=== PATIENT | female | born 1970 | race Caucasian/White ===

== ENCOUNTER 2016-04-06 10:57 | Emergency (ER) | payer OTHER ==
[2016-04-06 11:54] LABS: BASOPHILS 0.3 % (0.0-2.0); EOSINOPHILS 0.8 % (0-7); HEMATOCRIT 42.9 % (36.0-48.0); HEMOGLOBIN 14.4 g/dL (12-16); IMMATURE GRANULOCYTES 0.3 % (0-5); LYMPHOCYTES 34.3 % (15-50); MCH 32.1 pg (26.0-34.0); MCHC 33.6 g/dL (31.0-37.0); MCV 95.8 fL (80.0-100.0); MEAN PLATELET VOLUME 10.6 fL (7.4-10.4); MONOCYTES 7.3 % (2-11); PLATELET COUNT 260 10x3/uL (130-400); RBC 4.48 10x6/uL (4.00-5.40); RDW 13.2 % (11.5-14.5); WBC 7.2 10x3/uL (4.8-10.8)
[2016-04-06 12:20] LABS: CALC OSMOLALITY 281 mosm/kg (275-300); CALCIUM 8.8 mg/dL (8.5-10.1); CARBON DIOXIDE 28.5 mmol/L (21.0-32.0); CHLORIDE - SERUM 105 mmol/L (98-107); CREATININE - SERUM 0.8 mg/dL (0.6-1.3); GLUCOSE 96 mg/dL (74-106); SODIUM 141 mmol/L (136-145); T4 THYROXIN - FREE 0.84 ng/dL (0.76-1.46); THYROID STIMULATING HORMONE 1.08 uIU/mL (0.36-3.74); UREA NITROGEN 14 mg/dL (7-18); eGFR NON AFRICAN AMERICAN 82 mL/min (90-120)
[2016-04-06 12:31] LABS: TROPONIN-I < 0.017 ng/mL (0.000-0.060)
== END 2016-04-06 13:44 | disposition home or self-care (01) ==
LOC: D.ER 10:57
PROVIDERS: Emergency Medicine Emergency Medical Services
DX: I49.8 Other specified cardiac arrhythmias (principal); R53.1 Weakness

== ENCOUNTER → 2016-04-07 16:41 | Outpatient (CLI) | payer OTHER ==
[2016-04-07 18:05] LABS: T4 THYROXIN - FREE 0.82 ng/dL (0.76-1.46); THYROID STIMULATING HORMONE 0.92 uIU/mL (0.36-3.74)
[2016-04-07 18:58] LABS: ERYTHROCYTE SEDIMENTATION RATE 3 mm/hr (0-20)
== END | disposition home or self-care (01) ==
LOC: D.LABREF 16:41
PROVIDERS: Internal Medicine Cardiovascular Disease
DX: R06.00 Dyspnea, unspecified (principal); R00.1 Bradycardia, unspecified

== ENCOUNTER → 2016-06-02 14:24 | Outpatient (CLI) | payer OTHER | END | disposition home or self-care (01) | LOC: D.CT 14:24 | DX: M54.5 Low back pain (principal) ==

== ENCOUNTER 2016-08-20 09:02 | Outpatient (CLI) | payer OTHER | END 2016-08-20 11:06 | LOC: D.MAMMO 09:02 | DX: N63 Unspecified lump in breast (principal); Z80.3 Family history of malignant neoplasm of breast ==

== ENCOUNTER → 2018-07-14 09:45 | Outpatient (CLI) | payer OTHER | END | disposition home or self-care (01) | LOC: D.OPS 09:45 | DX: K21.9 Gastro-esophageal reflux disease without esophagitis (principal); K44.9 Diaphragmatic hernia without obstruction or gangrene ==

== ENCOUNTER 2018-10-06 06:10 | Day surgery (SDC) | payer OTHER ==
[2018-10-05 09:15] LABS: BASOPHILS 0.3 % (0-2); EOSINOPHILS 3.4 % (0-7); HEMATOCRIT 47.2 % (36.0-48.0); HEMOGLOBIN 16.5 g/dL (12-16); IMMATURE GRANULOCYTES 0.1 % (0-5); LYMPHOCYTES 40.8 % (15-50); MCH 31.9 pg (26.0-34.0); MCV 91.3 fL (80.0-100.0); MEAN PLATELET VOLUME 9.6 fL (7.4-10.4); NEUTROPHILS 47.4 % (40-80); PLATELET COUNT 268 10x3/uL (130-400); RBC 5.17 10x6/uL (4.00-5.40); WBC 7.1 10x3/uL (4.8-10.8)
[2018-10-05 09:23] LABS: ANION GAP 9.8 mmol/L (8-16); CALCIUM 9.3 mg/dL (8.5-10.1); CARBON DIOXIDE 29.5 mmol/L (21.0-32.0); CREATININE - SERUM 0.9 mg/dL (0.6-1.3); POTASSIUM - SERUM 4.3 mmol/L (3.5-5.1)
[~2018-10-06] VITALS: Ht 167.6 cm; Wt 77.7 kg
[~2018-10-06 06:10] MED LIST: CYTOMEL25 MCG PO; MAGNESIUM OXID500 MG PO; PERCOCET 7.5/321 TAB PO; VITAMIN C500 M1 PO
[2018-10-06 06:51] VITALS: BP 144/97; BMI 28.1
[2018-10-06 11:09] VITALS: BP 131/84
[2018-10-06 15:37] VITALS: BP 131/84; Ht 167.6 cm; Wt 77.7 kg
[2018-10-06 16:34] VITALS: BP 135/77
--- NOTE | 2018-10-06 19:30 | NUR ---
PT CALL ME INTO ROOM AND VOICES CONCERN ABOUT BLEEDING LAP SITE ON THE RIGHT SIDE OF ABDOMEN. WHILE REDRESSING SITE PT VOICES THAT SHE WANTED TO SEE THE DOCTOR. CALLED DEVORA TO NOTIFY SITUATION AND PT WANTING TO SEE HIM. WAS TOLD TO REENFORCE SITE AND THAT HE WOULD TRY TO MAKE A VISIT. THIRTY MINUTES AFTER PHONE CALL DEVORA VISITS PT. WILL CONTINUE TO MONITOR.
[2018-10-06 20:00] VITALS: BP 123/77
[2018-10-07] VITALS: BP 112/76
[2018-10-07 04:00] VITALS: BP 124/69
[2018-10-07 06:38] LABS: BASOPHILS 0.1 % (0-2); EOSINOPHILS 0.3 % (0-7); HEMATOCRIT 38.8 % (36.0-48.0); HEMOGLOBIN 13.2 g/dL (12-16); IMMATURE GRANULOCYTES 0.2 % (0-5); LYMPHOCYTES 30.7 % (15-50); MCH 31.5 pg (26.0-34.0); MCV 92.6 fL (80.0-100.0); MONOCYTES 8.8 % (2-11); NEUTROPHILS 59.9 % (40-80); PLATELET COUNT 226 10x3/uL (130-400); RBC 4.19 10x6/uL (4.00-5.40); RDW 14.2 % (11.5-14.5)
[2018-10-07 06:51] LABS: CALC OSMOLALITY 281 mosm/kg (275-300); CALCIUM 7.8 mg/dL (8.5-10.1); CARBON DIOXIDE 27.8 mmol/L (21.0-32.0); CHLORIDE - SERUM 108 mmol/L (98-107); CREATININE - SERUM 0.8 mg/dL (0.6-1.3); GLUCOSE 95 mg/dL (74-106); POTASSIUM - SERUM 3.7 mmol/L (3.5-5.1); SODIUM 142 mmol/L (136-145); UREA NITROGEN 10 mg/dL (7-18); eGFR NON AFRICAN AMERICAN 81 mL/min (90-120)
[2018-10-07 06:52] LABS: WBC 11.6 10x3/uL (4.8-10.8)
--- NOTE | 2018-10-07 07:15 | NUR ---
PATIENT RECIEVED FROM PREVIOUS SHIFT RESTING WITH NO NEEDS VOICED. POST OP DAY 1 HERNIA REPAIR. NO BLEEDING NOTED TO SURGICAL SITE. CL IN REACH
[2018-10-07 08:44] VITALS: BP 138/75
[2018-10-07 13:32] VITALS: BP 154/84
[2018-10-07] MEDS ORDERED: PERCOCET 10-321 EAC1 PO (13:42)
[2018-10-07] MEDS ORDERED: REGLAN10 MG PO (13:43)
--- NOTE | 2018-10-07 16:08 | NUR ---
IV REMOVED WITH NO REDNESS OR EDEMA. DISCHARGE INSTRUCTIONS GIVEN WITH UNDERSTANDING VOICED. PATIENT TAKEN BY WHEELCHAIR TO PRIVATE CAR
--- NOTE | 2018-10-13 07:19 | OP ---
PATIENT NAME: HAMILTON FELICIANO MEDICAL RECORD: [id number] :72 LOCATION:D.OPS ADMISSION DATE: SURGEON: TIM LOZOYA MD DATE OF OPERATION: 10/06/2018 PREOPERATIVE DIAGNOSES: 1. Gastroesophageal reflux disease. 2. Hiatal hernia. 3. Hypothyroidism. POSTOPERATIVE DIAGNOSES: 1. Gastroesophageal reflux disease. 2. Hiatal hernia. 3. Hypothyroidism. PROCEDURE: Laparoscopic Sam with hiatal hernia repair. SURGEON: Tim Lozoya MD REPORT OF PROCEDURE: The patient's abdomen was prepped and draped in sterile fashion. A Veress needle was inserted in the left upper quadrant and the abdomen was insufflated. An 11-mm Visiport trocar was inserted in the midline just above the umbilicus. The Veress needle was visualized and there was no sign of any injury to bowel or surrounding structures. The 11-mm trocar was then placed in the left subcostal region, a 5-mm trocar was placed in the epigastrium, a 5-mm trocar was placed in the left lateral abdomen, and a final 5-mm trocar was placed in the right lateral subcostal region. The left lobe of the liver was elevated. Visualization of the patient's esophageal hiatus showed that there was a hiatal hernia present. The upper 3-4 cm of the stomach appeared to be up in the chest. We began our dissection on the lesser omentum by taking down this tissue using Harmonic scalpel. There was a large blood vessel present within this and this was preserved throughout the case. We were able to come up to the right side of the right fam and we scored the peritoneum and took down the hernia sacs that entered into the thoracic cavity. As we did this, we were able to dissect anteriorly and posteriorly as far as we could go. Once we did this, we went to the greater curvature of the stomach and took down the short gastric vessels using Harmonic scalpel. We continued this dissection to the left side of the right fam. Again, we scored the peritoneum and entered into the tissue around the hernia sac. I was able to eviscerate this out of the patient's thoracic cavity. At this point, we had good visualization of the patient's esophagus in a 360-degree fashion and the vagus nerves were preserved. At this point, the distal aspect of the esophagus rested easily in the abdominal cavity with about 2-3 cm of tissue present without tension. We performed a closure of the esophageal hiatus on this posterior aspect using interrupted 0 Polydeks times 3. The patient then had a posterior 360-degree fundoplication by taking the fundus of the stomach and wrapping around the posterior aspect of the esophagus distally. This was sutured into place with 0 Ti-Cron times 3 with the top and the bottom suture incorporating a bite of the esophagus. The wrap appeared to be in good position and did not appear to be too tight. We irrigated out the abdomen and assured there was no sign of any active bleeding, which there was none. At this point, the liver retractor was removed. The 11-mm trocar site fascias were closed with interrupted 0 Vicryls using a Jose G-Trent suture passer device. The ports and insufflation were then removed. The wounds were infused with a total of 10 mL of 0.25% Marcaine with epinephrine and the skin incisions were then closed with subcutaneous 5-0 OPERATIVE REPORT [id number] HAMILTON FELICIANO. COMPLICATIONS: None. CONDITION: Stable. ANESTHESIA: General endotracheal and local. BLOOD LOSS: Minimal. TRANSINT:[id number] Voice Confirmation ID: [id number] DOCUMENT ID: [id number] TIM LOZOYA MD at 0719 CC: JAMES LIGHT and RUI WAY DO [id number] DICTATION DATE: 10/06/18 0954 [employer] COORDINATOR: 10/06/18 1054 [facility] 10/07/18 [id number] [place] [address]
== END 2018-10-07 16:10 | disposition home or self-care (01) ==
LOC: D.OPS 06:10 → D.MS 11:08 → D.OPS 10-07 16:10
PROVIDERS: ATTEND Surgery
DX: K21.9 Gastro-esophageal reflux disease without esophagitis (principal); K44.9 Diaphragmatic hernia without obstruction or gangrene; E03.9 Hypothyroidism, unspecified; Z01.812 Encounter for preprocedural laboratory examination